=== PATIENT | male | born 1975 | race Asian ===

== ENCOUNTER 2023-12-19 20:31 | Emergency (ER) | payer SELFPAY ==
[~2023-12-19] VITALS: Ht 190.5 cm; Wt 76.7 kg
[2023-12-19 21:34] VITALS: BP 128/90; PULSE 85; RESP 16; O2SAT 97
[2023-12-19 21:41] LABS: Urine Bacteria None Seen /hpf (None Seen)
[2023-12-19 21:53] LABS: Urine Blood Negative /uL (Negative); Urine Clarity Clear (Clear); Urine Color Yellow (Yellow); Urine Mucus FEW (None Seen); Urine Protein, UAD 1+ (Negative); Urine Specific Gravity 1.044 (1.001-1.035); Urine Urobilinogen 2 mg/dL (Negative); Urine WBC 1 /hpf (0 - 3)
[2023-12-19 21:57] LABS: Basophils # (auto) 0.1 10 ^3/uL (0-0.2); Eosinophils # (auto) 0.1 10 ^3/uL (0-0.8); Eosinophils % (auto) 1.6 % (0.0-7.0); Hematocrit 45.7 % (41.0-53.0); Hemoglobin 15.4 g/dL (13.5-17.5); Lymphocytes # (auto) 2.5 10 ^3/uL (0.4-5.4); Lymphocytes % (auto) 44.4 % (10.0-50.0); Mean Corpuscular Hemoglobin 30.6 pg (28.0-32.0); Mean Corpuscular Hgb Conc. 33.6 g/dL (32.0-36.0); Monocytes # (auto) 0.4 10 ^3/uL (0-1.3); Monocytes % (auto) 7.3 % (0.0-12.0); Neutrophils # (auto) 2.5 10 ^3/uL (1.6-8.6); Neutrophils % (auto) 45.7 % (37.0-80.0); Nucleated Red Blood Cells % 0.3 %; Red Blood Cells 5.02 10^6/uL (4.5-5.90); Red Cell Distribution Width 13.5 % (11.8-14.3); White Blood Cell 5.5 10^3/uL (4.4-10.8)
[2023-12-19 22:12] LABS: Alanine Aminotransferase 18 U/L (7-40); Albumin 4.4 g/dL (3.2-4.8); Alkaline Phosphatase 75 U/L (46-116); Anion Gap 5 (5-15); Aspartate Aminotransferase 15 U/L (13-40); BUN/Creatinine Ratio 15.9 (10.0-20.0); Bilirubin, Total 0.6 mg/dL (0.2-1.0); Blood Urea Nitrogen 14 mg/dL (9-23); Carbon Dioxide 26 mmol/L (20-30); Chloride 109 mmol/L (98-107); Glucose 95 mg/dL (74-106); Lipase 41 U/L (12-53); Sodium 140 mmol/L (136-145); Total Protein 7.7 g/dL (5.7-8.2)
[2023-12-20] MEDS ORDERED: HYDR-4902 PO (01:52)
[2023-12-20] MEDS ORDERED: BACL10TA PO (01:52)
[2023-12-20] MEDS ORDERED: ZOFR4T PO (01:52)
[2023-12-20] MEDS ORDERED: BACDST PO (01:52)
[2023-12-20] MEDS: DexAMETHasone SOD PHOS 10MG/1ML VIAL INJ IM ONE (03:27)
[2023-12-20] MEDS: KETOROLAC TROMETH 60MG/2ML VIAL IM ONE (03:27)
[2023-12-20] MEDS: ONDANSETRON ODT 4 MG TAB PO ONE (03:28)
[2023-12-20] MEDS: HYDROcodone-ACET 5/325MG TAB PO ONE (03:28)
== END 2023-12-20 02:24 | disposition home or self-care (01) ==
LOC: ER 20:31
DX: N39.0 Urinary tract infection, site not specified (principal); M62.830 Muscle spasm of back
CPT/HCPCS: 36415; 74176; 80053; 81001; 83690; 85025

== ENCOUNTER 2024-10-28 19:35 | Emergency (ER) | payer SELFPAY ==
[~2024-10-28] VITALS: Ht 177.8 cm; Wt 68.2 kg
[~2024-10-28 19:35] MED LIST: BACDST PO; BACL10TA PO; HYDR-4902 PO; ZOFR4T PO
[2024-10-28 19:50] VITALS: BP 162/99; PULSE 115; RESP 18; TEMP 98; O2SAT 95
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
== END 2024-10-28 23:05 | disposition left against medical advice (07) ==
LOC: EDBD 19:35 → ER 19:39
DX: S00.83XA Contusion of other part of head, initial encounter (principal); E11.9 Type 2 diabetes mellitus without complications; D64.9 Anemia, unspecified; Z79.899 Other long term (current) drug therapy; Y08.89XA Assault by other specified means, initial encounter; Y93.89 Activity, other specified; Y92.89 Other specified places as the place of occurrence of the external cause; Y99.8 Other external cause status